=== PATIENT | male | born 1975 | race Two or more races ===

== ENCOUNTER 2020-12-05 07:42 | Inpatient (IN) ==
[2020-12-05] MEDS ORDERED: SODIUM CHLORIDE 0.9% 1000ML 1,000 ML IV SCH (08:15)
[2020-12-05 08:28] LABS: Hematocrit (blood only) 42.9 % (42-52); Hemoglobin 14.5 g/dL (14.0-18.0); Mean Corpuscular Hemoglobin 30.5 pg (25-34); Mean Corpuscular Hgb Conc 33.8 g/dL (32-36); Mean Corpuscular Volume 90.3 fL (80-100); Mean Platelet Volume 9.6 fL (7.4-10.4); Platelet Count 410 K/uL (130-400); RDW Coefficient of Variation 14.3 % (11.5-14.5); RDW Standard Deviation 47.6 fL (36.4-46.3); Red Blood Count 4.75 M/uL (4.7-6.1); White Blood Count 10.01 K/uL (4.8-10.8)
[2020-12-05 08:42] LABS: Alanine Aminotransferase 57 U/L (12-78); Albumin Level 2.5 gm/dl (3.4-5.0); BUN Creatinine Ratio 18.8 (10-20); Blood Urea Nitrogen 18 mg/dl (7-18); Calcium 8.8 mg/dl (8.5-10.1); Carbon Dioxide 24 mmol/L (21-32); Chloride 102 mmol/L (98-107); Creatinine Clr Calc Pharmacy 107.7 ml/min; Est GFR (African American) 108.8; Est GFR (Non-African American) 93.9; Glucose 111 mg/dl (70-99); Sodium 137 mmol/L (136-145)
--- NOTE | 2020-12-05 08:42 | Emergency Department Note ---
History of Present Illness General Chief Complaint: Shortness of Breath/Dyspnea Time Seen by Provider: 12/05/20 07:50 Source: patient Mode of arrival: EMS Limitations: no limitations History of Present Illness Provider Complaint: shortness of breath Maximum Pain Intensity: 2 HPI Narrative: This is a 45-year-old male who presents to the ED with a chief complaint of shortness of breath. The patient started having shortness of breath yesterday. He also states that he has a cough that is nonproductive. He has had a little diarrhea over the past 24 hours and also reports some chills and diaphoresis. He was found to have oxygen saturations in the 80s and sent here from the [facility]. The patient has no additional complaints. Related Data Home oxygen amount: none Home Medications Medication Instructions Recorded Confirmed Type No Known Home Medications 12/05/20 12/05/20 History Allergies Allergy/AdvReac Type Severity Reaction Status Date / Time No Known Allergies Allergy Unverified 12/05/20 08:19 Past Med/Surg History Social History Smoking Status: Former smoker Feels Safe at Home: Yes Review of Systems A total of 10 systems reviewed and were otherwise negative Physical Exam Vital Signs: Vital Signs - 24 hr 12/05/20 07:50 12/05/20 07:54 12/05/20 07:55 Temperature 37.4 C Temperature Source Oral Pulse Rate 116 H 115 H 115 H Pulse Rate from Sp O2 Sensor 116 H 116 H Respiratory Rate 24 21 22 Respiratory Effort / Characteristics Non-Labored Respiratory Depth Normal Blood Pressure 131/83 123/79 Blood Pressure Janelle n 98 93 Pulse Oximetry 91 91 84 L Oxygen Delivery Me thod Oxymask Oxymask Room Air Oxygen Flow Rate 6 6 0 Sepsis Recent Feve r Within 48 Hours No Sepsis New/Unexpla ined Change in Men nino Status No Sepsis Action Take n by Nursing Physician Notified Oxygen Flow Rate - Titration 6 Pulse Oximetry Pos t Tiitration 95 12/05/20 08:00 12/05/20 08:01 12/05/20 08:15 Temperature Temperature Source Pulse Rate 118 H 119 H 115 H Pulse Rate from Sp O2 Sensor 118 H 121 H 115 H Respiratory Rate 28 H 23 24 Respiratory Effort / Characteristics Respiratory Depth Blood Pressure 123/79 129/78 Blood Pressure Janelle n 93 98 Pulse Oximetry 92 92 95 Oxygen Delivery Me thod Oxymask Oxymask Oxymask Oxygen Flow Rate 6 6 6 Sepsis Recent Feve r Within 48 Hours Sepsis New/Unexpla ined Change in Men nino Status Sepsis Action Take n by Nursing Oxygen Flow Rate - Titration Pulse Oximetry Pos t Tiitration 12/05/20 08:16 12/05/20 08:20 12/05/20 08:30 Temperature Temperature Source Pulse Rate 113 H 115 H Pulse Rate from Sp O2 Sensor 113 H 115 H Respiratory Rate 22 28 H Respiratory Effort / Characteristics Respiratory Depth Blood Pressure Blood Pressure Janelle n Pulse Oximetry 95 95 91 Oxygen Delivery Me thod Oxymask Oxymask Oxymask Oxygen Flow Rate 6 6 6 Sepsis Recent Feve r Within 48 Hours Sepsis New/Unexpla ined Change in Men nino Status Sepsis Action Take n by Nursing Oxygen Flow Rate - Titration Pulse Oximetry Pos t Tiitration 12/05/20 08:42 12/05/20 08:45 12/05/20 08:46 Temperature Temperature Source Pulse Rate 114 H 115 H 115 H Pulse Rate from Sp O2 Sensor 116 H 115 H 114 H Respiratory Rate 22 21 24 Respiratory Effort / Characteristics Respiratory Depth Blood Pressure 124/75 121/80 Blood Pressure Janelle n 81 84 Pulse Oximetry 93 94 94 Oxygen Delivery Me thod Oxymask Oxymask Oxymask Oxygen Flow Rate 6 6 6 Sepsis Recent Feve r Within 48 Hours Sepsis New/Unexpla ined Change in Men nino Status Sepsis Action Take n by Nursing Oxygen Flow Rate - Titration Pulse Oximetry Pos t Tiitration 12/05/20 09:00 12/05/20 09:15 12/05/20 09:30 Temperature Temperature Source Pulse Rate 123 H 108 H 108 H Pulse Rate from Sp O2 Sensor 120 H 109 H 108 H Respiratory Rate 22 22 24 Respiratory Effort / Characteristics Respiratory Depth Blood Pressure Blood Pressure Janelle n Pulse Oximetry 94 95 96 Oxygen Delivery Me thod Oxymask Oxymask Oxymask Oxygen Flow Rate 6 6 6 Sepsis Recent Feve r Within 48 Hours Sepsis New/Unexpla ined Change in Men nino Status Sepsis Action Take n by Nursing Oxygen Flow Rate - Titration Pulse Oximetry Pos t Tiitration 12/05/20 09:45 12/05/20 09:46 12/05/20 10:20 Temperature Temperature Source Pulse Rate 107 H 108 H 108 H Pulse Rate from Sp O2 Sensor 108 H 107 H Respiratory Rate 22 24 18 Respiratory Effort / Characteristics Respiratory Depth Blood Pressure 138/89 Blood Pressure Janelle n 104 Pulse Oximetry 95 94 Oxygen Delivery Me thod Oxymask Oxymask Oxygen Flow Rate 6 6 Sepsis Recent Feve r Within 48 Hours Sepsis New/Unexpla ined Change in Men nino Status Sepsis Action Take n by Nursing Oxygen Flow Rate - Titration Pulse Oximetry Pos t Tiitration Physical Exam: CONSTITUTIONAL/VITAL SIGNS: Reviewed / noted above. GENERAL: Non-toxic in appearance. INTEGUMENTARY: Warm, dry, and Jeannette. HEAD: Normocephalic. EYES: without scleral icterus or trauma. ENT/OROPHARYNX: clear and moist. LYMPHADENOPATHY/NECK: Is supple without lymphadenopathy or meningismus. RESPIRATORY: Lungs clear and equal. Mild increased work of breathing. CARDIOVASCULAR: Regular rate and rhythm. GI/ABDOMEN: Soft and nontender. No organomegaly or pulsatile mass. No rebound or guarding. Normal bowel sounds. EXTREMITIES: Warm and well perfused. BACK: No CVA tenderness. NEUROLOGICAL: Intact without focal deficits. PSYCHIATRIC: normal affect. MUSCULOSKELETAL: Normally developed with good muscle tone. TRIAGE NURSING DOCUMENTATION REVIEWED. Course Administered Medications Levofloxacin/Dextrose (Levaquin/D5w) 750 mg in 150 mls @ 100 mls/hr IV NOW STA Stop: 12/05/20 11:41 Last Admin: 12/05/20 10:22 Dose: 100 mls/hr Documented by: [id number] Discontinued Medications Sodium Chloride (Nss 1000ml) 1,000 mls @ 999 mls/hr IV .Q1H1M KASIA Stop: 12/05/20 09:15 Last Admin: 12/05/20 08:52 Dose: 999 mls/hr Documented by: [id number] Ioversol (Optiray 320 125ml) 110 ml IV ONCE ONE Stop: 12/05/20 10:05 Last Admin: 12/05/20 10:06 Dose: 110 ml Documented by: [id number] Medical Decision Making Differential Diagnosis The differential was considered includes acute myocardial infarction, acute co ronary syndrome, myocarditis, pericarditis, pericardial effusions /tamponad, esophageal perforation, pulmonary embolism, pneumonia, pneumothorax, cardiomyopathy, congestive heart, anemia , COPD/asthma exacerbation. Medical Records Attestation: I reviewed the patient's medical records. Home Medications Current Medication List: was personally reviewed by me Laboratory Data Attestation: I reviewed the patient's lab results. Result diagrams: 12/05/20 07:50 12/05/20 08:52 Lab Results 12/05/20 12/05/20 12/05/20 Range/Units 07:50 07:50 07:50 WBC 10.01 (4.8-10.8) K/uL RBC 4.75 (4.7-6.1) M/uL Hgb 14.5 (14.0-18.0) g/dL Hct 42.9 (42-52) % MCV 90.3 (80-100) fL MCH 30.5 (25-34) pg MCHC 33.8 (32-36) g/dL RDW Std Deviation 47.6 H (36.4-46.3) fL RDW Coeff of Power 14.3 (11.5-14.5) % Plt Count 410 H (130-400) K/uL MPV 9.6 (7.4-10.4) fL Immature Gran % (Auto) 0.4 % Neut % (Auto) 78.2 % Lymph % (Auto) 11.9 % Catron % (Auto) 9.2 % Eos % (Auto) 0.1 % Baso % (Auto) 0.2 % Neut # (Auto) 7.83 H (1.4-6.5) K/uL Lymph # (Auto) 1.19 L (1.2-3.4) K/uL Catron # (Auto) 0.92 H (0.11-0.59) K/uL Eos # (Auto) 0.01 (0-0.5) K/uL Baso # (Auto) 0.02 (0-0.2) K/uL Immature Gran # (Auto) 0.04 H (0.00-0.02) K/uL PT 10.6 (9.0-12.0) Seconds INR 1.0 (0.9-1.1) APTT 25.1 (21.0-31.0) Seconds PTT Ratio 0.9 D-Dimer 940 H* (0-500) ug/L FEU VBG pH (7.36-7.41) VBG pCO2 (38-50) mmHg VBG pO2 mmHg VBG HCO3 mmol/L VBG O2 Saturation % VBG Base Excess mEq/L Barometric Pressure mm/Hg Sodium 137 (136-145) mmol/L Potassium (3.5-5.1) mmol/L Chloride 102 (98-107) mmol/L Carbon Dioxide 24 (21-32) mmol/L Anion Gap 11.0 (3-11) BUN 18 (7-18) mg/dl Creatinine 0.97 (0.6-1.4) mg/dl Est Cr Clr Drug Dosing 107.7 ml/min Est GFR ( Amer) 108.8 Est GFR (Non-Af Amer) 93.9 BUN/Creatinine Ratio 18.8 (10-20) Glucose 111 H (70-99) mg/dl Calcium 8.8 (8.5-10.1) mg/dl Magnesium (1.8-2.4) mg/dl Total Bilirubin 0.6 (0.2-1) mg/dl AST (15-37) U/L ALT 57 (12-78) U/L Alkaline Phosphatase 52 (45-117) U/L Troponin I < 0.015 (0-0.045) ng/ml NT-Pro-B Natriuret Pep 9 (0-450) pg/ml Total Protein 7.4 (6.4-8.2) gm/dl Albumin 2.5 L (3.4-5.0) gm/dl Globulin 4.9 H (2.5-4.0) gm/dl Albumin/Globulin Ratio 0.5 L (0.9-2) Specimen Hemolysis COVID-19 Eval Order SARS-CoV-2 (PCR) (Negative) Influenza Type A (PCR) (Neg) Influenza Type B (PCR) (Neg) RSV (RT-PCR) (Neg) 12/05/20 12/05/20 12/05/20 Range/Units 07:58 07:58 08:35 WBC (4.8-10.8) K/uL RBC (4.7-6.1) M/uL Hgb (14.0-18.0) g/dL Hct (42-52) % MCV (80-100) fL MCH (25-34) pg MCHC (32-36) g/dL RDW Std Deviation (36.4-46.3) fL RDW Coeff of Power (11.5-14.5) % Plt Count (130-400) K/uL MPV (7.4-10.4) fL Immature Gran % (Auto) % Neut % (Auto) % Lymph % (Auto) % Catron % (Auto) % Eos % (Auto) % Baso % (Auto) % Neut # (Auto) (1.4-6.5) K/uL Lymph # (Auto) (1.2-3.4) K/uL Catron # (Auto) (0.11-0.59) K/uL Eos # (Auto) (0-0.5) K/uL Baso # (Auto) (0-0.2) K/uL Immature Gran # (Auto) (0.00-0.02) K/uL PT (9.0-12.0) Seconds INR (0.9-1.1) APTT (21.0-31.0) Seconds PTT Ratio D-Dimer (0-500) ug/L FEU VBG pH 7.44 H (7.36-7.41) VBG pCO2 40 (38-50) mmHg VBG pO2 36 mmHg VBG HCO3 27 mmol/L VBG O2 Saturation 68.0 % VBG Base Excess 2.3 mEq/L Barometric Pressure 734.3 mm/Hg Sodium (136-145) mmol/L Potassium (3.5-5.1) mmol/L Chloride (98-107) mmol/L Carbon Dioxide (21-32) mmol/L Anion Gap (3-11) BUN (7-18) mg/dl Creatinine (0.6-1.4) mg/dl Est Cr Clr Drug Dosing ml/min Est GFR ( Amer) Est GFR (Non-Af Amer) BUN/Creatinine Ratio (10-20) Glucose (70-99) mg/dl Calcium (8.5-10.1) mg/dl Magnesium (1.8-2.4) mg/dl Total Bilirubin (0.2-1) mg/dl AST (15-37) U/L ALT (12-78) U/L Alkaline Phosphatase (45-117) U/L Troponin I (0-0.045) ng/ml NT-Pro-B Natriuret Pep (0-450) pg/ml Total Protein (6.4-8.2) gm/dl Albumin (3.4-5.0) gm/dl Globulin (2.5-4.0) gm/dl Albumin/Globulin Ratio (0.9-2) Specimen Hemolysis COVID-19 Eval Order CovFluRsv at [facility] SARS-CoV-2 (PCR) NEGATIVE (Negative) Influenza Type A (PCR) Negative (Neg) Influenza Type B (PCR) Negative (Neg) RSV (RT-PCR) Negative (Neg) 12/05/20 Range/Units 08:52 WBC (4.8-10.8) K/uL RBC (4.7-6.1) M/uL Hgb (14.0-18.0) g/dL Hct (42-52) % MCV (80-100) fL MCH (25-34) pg MCHC (32-36) g/dL RDW Std Deviation (36.4-46.3) fL RDW Coeff of Power (11.5-14.5) % Plt Count (130-400) K/uL MPV (7.4-10.4) fL Immature Gran % (Auto) % Neut % (Auto) % Lymph % (Auto) % Catron % (Auto) % Eos % (Auto) % Baso % (Auto) % Neut # (Auto) (1.4-6.5) K/uL Lymph # (Auto) (1.2-3.4) K/uL Catron # (Auto) (0.11-0.59) K/uL Eos # (Auto) (0-0.5) K/uL Baso # (Auto) (0-0.2) K/uL Immature Gran # (Auto) (0.00-0.02) K/uL PT (9.0-12.0) Seconds INR (0.9-1.1) APTT (21.0-31.0) Seconds PTT Ratio D-Dimer (0-500) ug/L FEU VBG pH (7.36-7.41) VBG pCO2 (38-50) mmHg VBG pO2 mmHg VBG HCO3 mmol/L VBG O2 Saturation % VBG Base Excess mEq/L Barometric Pressure mm/Hg Sodium (136-145) mmol/L Potassium 4.0 (3.5-5.1) mmol/L Chloride (98-107) mmol/L Carbon Dioxide (21-32) mmol/L Anion Gap (3-11) BUN (7-18) mg/dl Creatinine (0.6-1.4) mg/dl Est Cr Clr Drug Dosing ml/min Est GFR ( Amer) Est GFR (Non-Af Amer) BUN/Creatinine Ratio (10-20) Glucose (70-99) mg/dl Calcium (8.5-10.1) mg/dl Magnesium 2.9 H (1.8-2.4) mg/dl Total Bilirubin (0.2-1) mg/dl AST 66 H (15-37) U/L ALT (12-78) U/L Alkaline Phosphatase (45-117) U/L Troponin I (0-0.045) ng/ml NT-Pro-B Natriuret Pep (0-450) pg/ml Total Protein (6.4-8.2) gm/dl Albumin (3.4-5.0) gm/dl Globulin (2.5-4.0) gm/dl Albumin/Globulin Ratio (0.9-2) Specimen Hemolysis COVID-19 Eval Order SARS-CoV-2 (PCR) (Negative) Influenza Type A (PCR) (Neg) Influenza Type B (PCR) (Neg) RSV (RT-PCR) (Neg) Imaging Data Radiologist's Impression: XR chest 1V portable CLINICAL HISTORY: Respiratory difficulty. COMPARISON STUDY: No previous studies for comparison. FINDINGS: The heart is borderline enlarged. There are multifocal airspace opacities consistent with a multifocal pneumonia. There are no large pleural effusions. There is no pneumothorax.[ IMPRESSION: Multifocal airspace opacities consistent with a multifocal pneumonia. CT scan of the chest: 1. No evidence for pulmonary embolus with limitations as described above. 2. Moderate multifocal pneumonia. This is likely due to viral process. 3. Mild mediastinal and bilateral hilar lymphadenopathy. This is likely reactive . 4. Small pericardial effusion. 5. Hepatic steatosis. ECG Data Attestation: I personally reviewed and interpreted this ECG as follows: (Per my interpretation there is a sinus tach at a rate of 115. No ST elevation or ectopy.) MDM Narrative Patient presents from the long term with a chief complaint of a cough, shortness of breath and hypoxia. Saturations were 84% on room air here. A chest x-ray and CT suggested multifocal pneumonia. CBC was normal. D-dimer was elevated. Complete metabolic panel was normal. Troponin was negative. Covid and flu test are negative. VBG was unremarkable. EKG showed a sinus tach at a rate of 115. I did start the patient on IV Levaquin. He was also given IV fluids. A CT scan with IV contrast is being performed. The patient was seen by the hospitalist for further patient evaluation and care. Impression & Plan Bilateral pneumonia, Hypoxia Critical Care Time Critical Care Time: Yes Total Critical Care Time: 35 I have personally spent 35 minutes of critical care time in the direct management of this patient. This includes bedside care, interpretation of diagnostic studies, and testing, discussion with consultants, patient, and family members, and other required patient management activities. This 35 minutes is in excess of all separately billable procedures. Discharge Plan Visit Data Chief Complaint: Shortness of Breath/Dyspnea ED Provider: Margarito Pritchett Discharge Problem: Bilateral pneumonia, Hypoxia Patient Disposition: Being Evaluated by Hospitalist Forms Stand Alone Forms: My [facility] Prescriptions Prescriptions: No Action No Known Home Medications RF: 0 Referrals Referrals: Moni PARKS [Primary Care Provider] - Discharge Problem: Bilateral pneumonia Qualifiers: Pneumonia type: due to unspecified organism Lung location: unspecified part of lung Qualified Code(s): J18.9 - Pneumonia, unspecified organism
[2020-12-05 08:49] LABS: Base Excess VBG 2.3 mEq/L; pH VBG 7.44 (7.36-7.41)
[2020-12-05 08:49] LABS: Partial Thromboplastin Ratio 0.9; Partial Thromboplastin Time 25.1 Seconds (21.0-31.0); Prothrombin Time 10.6 Seconds (9.0-12.0)
[2020-12-05 08:54] LABS: Albumin Globulin Ratio 0.5 (0.9-2); Alkaline Phosphatase 52 U/L (45-117); Basophils # (auto) 0.02 K/uL (0-0.2); Basophils % (auto) 0.2 %; Bilirubin,Total 0.6 mg/dl (0.2-1); Eosinophils # (auto) 0.01 K/uL (0-0.5); Eosinophils % (auto) 0.1 %; Globulin 4.9 gm/dl (2.5-4.0); Immature Granulocytes # (auto) 0.04 K/uL (0.00-0.02); Immature Granulocytes % (auto) 0.4 %; Lymphocytes # (auto) 1.19 K/uL (1.2-3.4); Lymphocytes % (auto) 11.9 %; Monocytes # (auto) 0.92 K/uL (0.11-0.59); Monocytes % (auto) 9.2 %; NT Pro B Type Natriuretic Pept 9 pg/ml (0-450); Neutrophils # (auto) 7.83 K/uL (1.4-6.5); Neutrophils % (auto) 78.2 %; Total Protein 7.4 gm/dl (6.4-8.2); Troponin I < 0.015 ng/ml (0-0.045)
[2020-12-05 08:59] LABS: D Dimer 940 ug/L FEU (0-500)
--- NOTE | 2020-12-05 09:08 | XRay Report ---
XR chest 1V portable CLINICAL HISTORY: Respiratory difficulty. COMPARISON STUDY: No previous studies for comparison. FINDINGS: The heart is borderline enlarged. There are multifocal airspace opacities consistent with a multifocal pneumonia. There are no large pleural effusions. There is no pneumothorax.[ IMPRESSION: Multifocal airspace opacities consistent with a multifocal pneumonia. ACT 112: Negative or not required by law. Electronically signed by: Herson Ivy M.D. 12/05/2020 9:07 AM
[2020-12-05 09:31] LABS: Magnesium 2.9 mg/dl (1.8-2.4)
[2020-12-05 09:34] LABS: Influenza A virus by PCR Negative (Neg); Influenza B virus by PCR Negative (Neg); RSV by PCR Negative (Neg); SARS CoV2 RNA(COVID-19) InHosp NEGATIVE (Negative)
[2020-12-05] MEDS ORDERED: OPTIRAY 320 125ml IV ONE (10:04)
[2020-12-05] MEDS ORDERED: levoFLOXacin/D5W 750 MG/150 ML BAG IV STA (10:12)
--- NOTE | 2020-12-05 10:29 | CT Scan Report ---
CHEST CTA for PULMONARY ARTERIES CT DOSE: 539.57 mGy.cm HISTORY: Shortness of breath. TECHNIQUE: Multiaxial CT images of the chest were performed following the intravenous administration of contrast to evaluate the pulmonary arteries. Maximal intensity projection images were also obtaine d. A dose lowering technique was utilized adhering to the principles of ALARA. COMPARISON STUDY: None. FINDINGS: Normal caliber thoracic aorta with no evidence for dissection. Small pericardial effusion. No pleural effusions. Motion artifact results in nondiagnostic evaluation of some of the bilateral lo wer lobe segmental and subsegmental pulmonary arteries. There is nondiagnostic evaluation of the segm ental and subsegmental right middle lobe pulmonary arteries due to the motion artifact. Otherwise, no definite filling defects within the remaining pulmonary arteries to suggest pulmonary embolus. A few mildly enlarged mediastinal and bilateral hilar lymph nodes. This is likely reactive. Dominant super ior mediastinal lymph node on image 211 measures 1.7 x 1.1 cm. Normal esophagus. The heart is normal in size. No evidence for right-sided heart strain. Limited views of the upper abdomen demonstrate a n ormal spleen and adrenal glands. Hepatic steatosis. No fractures within the visualized osseous struct ures. No pneumothorax. The central airways are patent. Multifocal patchy consolidative and groundglas s airspace opacities seen throughout the lungs. Findings are consistent with a moderate multifocal pn eumonia likely due to a viral process. IMPRESSION: 1. No evidence for pulmonary embolus with limitations as described above. 2. Moderate multifocal pneumonia. This is likely due to viral process. 3. Mild mediastinal and bilateral hilar lymphadenopathy. This is likely reactive. 4. Small pericardial effusion. 5. Hepatic steatosis. ACT 112: Negative or not required by law. Electronically signed by: Joe Nevarez M.D. 12/05/2020 10:27 AM
--- NOTE | 2020-12-05 11:25 | History & Physical Report ---
Date of Service December 05, 2020 Assessment & Plan (1) Bilateral pneumonia: Mr. Martins is a 45 year male inmate at [facility] with a history of Tobacco Use and Migraine Headaches who presented acutely to [facility] ER today with complaints of SOB, Non-Productive Cough, and Hypoxia which are most likely secondary to COVID-19 despite a negative initial SARS CoV 2 PCR. He has symptoms consistent with SARS CoV 2, there are several cases of COVID at [facility], imaging shows multifocal pneumonia/infiltrates, D-dimer is elevated, he has neutrophilia and lymphopenia, and he had O2 saturations in the 80's. Recommend the following: -- Admit to Telemetry bed on isolation and COVID precautions. -- Continue supplemental O2 to maintain Os saturation > 94%. -- Check procalcitonin now. -- Blood cultures have already been drawn. -- Begin IV Remdesivir 200 mg daily x 1 day, then 100 mg therafter. -- IV Decadron 6 mg daily. -- Azithromycin 500 mg IV daily. -- Convalescent plasma. -- Albuterol nebulizers. -- Monitor daily labs. (2) Hypoxia: -- As outlined above. (3) Exposure to COVID-19 virus: -- Several cases of SARS CoV-2 at [facility] facility currently. -- Repeat COVID testing as needed for discharge. (4) Chronic lower back pain: tylenol prn (5) Migraine: tylenol or ibuprofen prn (6) DVT prophylaxis: Lovenox 40 mg SQ twice daily Disposition-admit to PCU History of Present Illness Chief Complaint: -- Multifocal Pneumonia. -- Hypoxia. -- Exposure to SARS CoV 2. Primary Care Provider: [facility] Mr. Martins is a 45 year male inmate at [facility] with a history of Tobacco Use and Migraine Headaches who presented acutely to [facility] ER today with complaints of SOB, Non-Productive Cough, and Hypoxia. The patient started having shortness of breath last evening after taking a shower. He has also experienced diarrhea over the past 24 hours but denies any nausea, vomiting, or focal abdominal pain. Patient also reports chills, but he didn't check his temperature. He has a cough which is non-productive although it feels like "something wants to come up". Cough is exacerbated by taking a deep breath, and it hurts his head and chest when he coughs. His oxygen saturations at [facility] were recorded in the 80s -- so he was referred to the ER. Evaluation so far shows negative SARS CoV-2, negative for influenza. CXR shows multifocal infiltrates. CTA of Chest is negative for PE, moderate multifocal pneumonia most consistent with a viral process, and mild mediastinal and bilateral hilar lymphadenopathy (likely reactive). Presentation is consistent with COVID. Allergies Allergy/AdvReac Type Severity Reaction Status Date / Time No Known Allergies Allergy Unverified 12/05/20 08:19 Home Medications Medication Instructions Recorded Confirmed Type No Known Home Medications 12/05/20 12/05/20 History Past Med/Surg History Medical History (Updated 12/05/20 @ 12:51 by Aylin Yip MD) Chronic lower back pain Former smoker Influenza He was hospitalized for this as a child. Migraine Surgical History (Updated 12/05/20 @ 12:44 by Aylin Yip MD) History of appendectomy Family History Father AIDS (acquired immune deficiency syndrome) Social History (Updated 12/05/20 @ 12:48 by Aylin Yip MD) Smoking Status: Former smoker Tobacco Type: Cigarettes Age Started Using Tobacco: 13; Age Quit Using Tobacco: 43; packs per day: 1; Years Smoked: 30; Second Hand Exposure: No; Do You Dip or Chew Tobacco: No; Tobacco Cessation Education Requested by Patient: No Hx Alcohol Use: No Hx Substance Use: No Preferred Language: Slovak Communication Ability: Effective Spool Winder Required: No Beliefs That Will Affect Care: None Current Living Situation: Other Current Living Situation Comment: [facility] [place] Other Information That Helps Us Care for You: No Feels Safe at Home: Yes Safety Concerns: Feels Safe At This Time Assistive Devices: Glasses Review of Systems Review of Systems: All systems reviewed & are unremarkable except as noted in HPI & below Physical Exam Physical Exam: GENERAL: Patient appears ill, he tachypneic and taking shallow breaths. HEENT: Head is atraumatic, normocephalic. EOM's intact. Facies symmetric. No perioral cyanosis. NECK: No JVD. JVP is at the level of the clavicle sitting upright. Carotid upstrokes are + 2 bilaterally. No bruits are noted. No adenopathy. CHEST/LUNGS: Scattered crackles throughout, no pleural rubs noted. CVS: S1 and S2 are regular, tachycardiac at 106 bpm. No obvious murmurs, gallops, or rubs. PMI is nondisplaced. No lifts, heaves, or thrills. No abdominal aortic or renal bruits. ABDOMINAL EXAM: Bowel sounds are present. No masses, organomegaly, or tenderness. EXTREMITIES: No clubbing or cyanosis. No edema. Intact posterior tibial and radial pulses bilaterally. NEUROLOGIC EXAM: Patient is awake, alert, and oriented. Pleasant and cooperative. Answers questions appropriately. Speech is clear. Normal movement in all 4 extremities. Results & Data Results & Data ([facility]) Vital Signs (Past 12 Hours) Vital Signs Temp Pulse Resp BP Pulse Ox 12/05/20 11:01 103 H 18 95 12/05/20 11:00 105 H 22 110/62 95 12/05/20 10:46 104 H 22 96 12/05/20 10:45 103 H 20 131/66 96 12/05/20 10:31 106 H 24 95 12/05/20 10:30 104 H 22 121/72 95 12/05/20 10:27 110 H 17 127/78 90 12/05/20 10:20 108 H 18 12/05/20 09:46 108 H 24 94 12/05/20 09:45 107 H 22 138/89 95 12/05/20 09:30 108 H 24 96 12/05/20 09:15 108 H 22 95 12/05/20 09:00 123 H 22 94 12/05/20 08:46 115 H 24 94 12/05/20 08:45 115 H 21 121/80 94 12/05/20 08:42 114 H 22 124/75 93 12/05/20 08:30 115 H 28 H 91 12/05/20 08:20 95 12/05/20 08:16 113 H 22 95 12/05/20 08:15 115 H 24 129/78 95 12/05/20 08:01 119 H 23 92 12/05/20 08:00 118 H 28 H 123/79 92 12/05/20 07:55 37.4 C 115 H 22 123/79 84 L 12/05/20 07:54 115 H 21 91 12/05/20 07:50 116 H 24 131/83 91 Laboratory Results Laboratory Results - last 24 hr 12/05/20 12/05/20 12/05/20 07:50 07:50 07:50 WBC 10.01 RBC 4.75 Hgb 14.5 Hct 42.9 MCV 90.3 MCH 30.5 MCHC 33.8 RDW Std Deviation 47.6 H RDW Coeff of Power 14.3 Plt Count 410 H MPV 9.6 Immature Gran % (Auto) 0.4 Neut % (Auto) 78.2 Lymph % (Auto) 11.9 [place] % (Auto) 9.2 Eos % (Auto) 0.1 Baso % (Auto) 0.2 Neut # (Auto) 7.83 H Lymph # (Auto) 1.19 L [place] # (Auto) 0.92 H Eos # (Auto) 0.01 Baso # (Auto) 0.02 Immature Gran # (Auto) 0.04 H PT 10.6 INR 1.0 APTT 25.1 PTT Ratio 0.9 D-Dimer 940 H* VBG pH VBG pCO2 VBG pO2 VBG HCO3 VBG O2 Saturation VBG Base Excess Barometric Pressure Sodium 137 Potassium Chloride 102 Carbon Dioxide 24 Anion Gap 11.0 BUN 18 Creatinine 0.97 Est Cr Clr Drug Dosing 107.7 Est GFR ( Amer) 108.8 Est GFR (Non-Af Amer) 93.9 BUN/Creatinine Ratio 18.8 Glucose 111 H Calcium 8.8 Magnesium Total Bilirubin 0.6 AST ALT 57 Alkaline Phosphatase 52 Troponin I < 0.015 NT-Pro-B Natriuret Pep 9 Total Protein 7.4 Albumin 2.5 L Globulin 4.9 H Albumin/Globulin Ratio 0.5 L Procalcitonin Specimen Hemolysis COVID-19 Eval Order SARS-CoV-2 (PCR) Influenza Type A (PCR) Influenza Type B (PCR) RSV (RT-PCR) 12/05/20 12/05/20 12/05/20 07:58 07:58 08:35 WBC RBC Hgb Hct MCV MCH MCHC RDW Std Deviation RDW Coeff of Power Plt Count MPV Immature Gran % (Auto) Neut % (Auto) Lymph % (Auto) [place] % (Auto) Eos % (Auto) Baso % (Auto) Neut # (Auto) Lymph # (Auto) [place] # (Auto) Eos # (Auto) Baso # (Auto) Immature Gran # (Auto) PT INR APTT PTT Ratio D-Dimer VBG pH 7.44 H VBG pCO2 40 VBG pO2 36 VBG HCO3 27 VBG O2 Saturation 68.0 VBG Base Excess 2.3 Barometric Pressure 734.3 Sodium Potassium Chloride Carbon Dioxide Anion Gap BUN Creatinine Est Cr Clr Drug Dosing Est GFR ( Amer) Est GFR (Non-Af Amer) BUN/Creatinine Ratio Glucose Calcium Magnesium Total Bilirubin AST ALT Alkaline Phosphatase Troponin I NT-Pro-B Natriuret Pep Total Protein Albumin Globulin Albumin/Globulin Ratio Procalcitonin Specimen Hemolysis COVID-19 Eval Order CovFluRsv at [facility] SARS-CoV-2 (PCR) NEGATIVE Influenza Type A (PCR) Negative Influenza Type B (PCR) Negative RSV (RT-PCR) Negative 12/05/20 12/05/20 08:52 08:52 WBC RBC Hgb Hct MCV MCH MCHC RDW Std Deviation RDW Coeff of Power Plt Count MPV Immature Gran % (Auto) Neut % (Auto) Lymph % (Auto) [place] % (Auto) Eos % (Auto) Baso % (Auto) Neut # (Auto) Lymph # (Auto) [place] # (Auto) Eos # (Auto) Baso # (Auto) Immature Gran # (Auto) PT INR APTT PTT Ratio D-Dimer VBG pH VBG pCO2 VBG pO2 VBG HCO3 VBG O2 Saturation VBG Base Excess Barometric Pressure Sodium Potassium 4.0 Chloride Carbon Dioxide Anion Gap BUN Creatinine Est Cr Clr Drug Dosing Est GFR ( Amer) Est GFR (Non-Af Amer) BUN/Creatinine Ratio Glucose Calcium Magnesium 2.9 H Total Bilirubin AST 66 H ALT Alkaline Phosphatase Troponin I NT-Pro-B Natriuret Pep Total Protein Albumin Globulin Albumin/Globulin Ratio Procalcitonin Pending Specimen Hemolysis COVID-19 Eval Order SARS-CoV-2 (PCR) Influenza Type A (PCR) Influenza Type B (PCR) RSV (RT-PCR) Diagnostic Findings CTA CHEST: 1. No evidence for pulmonary embolus with limitations as described above. 2. Moderate multifocal pneumonia. This is likely due to viral process. 3. Mild mediastinal and bilateral hilar lymphadenopathy. This is likely reactive. 4. Small pericardial effusion. 5. Hepatic steatosis. CXR: -- Multifocal airspace opacities consistent with a multifocal pneumonia. EKG: -- Sinus tachycardia at 115 bpm. -- Poor R wave progression across precordial leads. -- Abnormal EKG No previous EKGs available. Medications Administered Active Medications Generic Name Dose Route Start Last Admin Trade Name Morro PRN Reason Stop Dose Admin Albuterol 2 puffs 12/05/20 12:00 Albuterol Hfa 8 Gm Inhaler INH 01/04/21 11:59 Q6 KASIA Guaifenesin/Dextromethorphan 5 ml 12/05/20 11:45 Guaifenesin/Dextrom Syrup 100mg/10mg 5ml Udc PO 01/04/21 11:44 Q6H KASIA Code Status & VTE Plan Code Status Full code VTE Prophylaxis Plan VTE Prophylaxis will be ordered: Yes Supervising Physician Co-Signing Physician Notes PA Supervision Note: I personally saw and examined the patient. I verified all parra points and agree with MORGAN Berrios with the following exceptions and/or additions: This patient is a 45-year-old male with a history of migraine headaches, former [id number] smoker, and chronic lower back pain who is a prisoner at a facility with an outbreak of Covid-19. He presents with 2 days of worsening shortness of breath, cough, headache, subjective fevers, and hypoxia in the 80s on room air. He was placed on oxygen and transferred to the ER. He was found to have bilateral infiltrates on chest CT, mildly elevated D-dimer, lymphopenia, and sinus tachycardia. He was on 6 L nasal cannula to keep his pulse ox in the low 90s upon admission. History and ROS reviewed as above Vitals reviewed Gen: AAOx3, NAD, appears ill HEENT: Anicteric sclerae, EOMI CV: Mild tachycardia, regular rhythm, no mgr nl S1S2 Pulm: Bilateral rhonchi and occasional expiratory wheeze Abd: +BS soft NT ND no masses or hernias Ext: No edema, 2+ DP pulses Skin: No rashes, warm/dry Neuro: Full strength throughout Laboratory values reviewed ECG reviewed CT angiogram and chest x-ray images personally reviewed by me 45-year-old male here with acute respiratory failure with hypoxia, bilateral pneumonia, highly suspect Covid-19 despite negative Covid-19 testing. Also in the differential could be Legionella and bacterial pneumonia given that procalcitonin is now elevated after admission. -Admit and treat presumably for Covid-19 as above with dexamethasone, remdesivir, consented for convalescent plasma We will also cover with levofloxacin for community-acquired pneumonia as well as Legionella pneumonia Check Legionella urine antigen Consider pulmonary consultation-we will discuss with pulmonology May need to switch to high flow nasal cannula if oxygen requirements increase Lovenox 40 mg twice daily for DVT prophylaxis PG Care Time/CCT Total # of Minutes Spent Total Time Spent with Patient: Total time spent is greater than 50% in coordination of care (as documented) at patient's floor/unit and/or counseling patient:25 Coding Level of Care Code 73905 Initial Inpt Care Lvl 3 Diagnoses Bilateral pneumonia J18.9 Lung location: unspecified part of lung Pneumonia type: due to unspecified organism Hypoxia R09.02 Exposure to COVID-19 virus Z20.822 Chronic lower back pain M54.5; G89.29 Migraine G43.909 DVT prophylaxis Z29.9 Time Spent (min) 50 (1) Bilateral pneumonia Lung location: unspecified part of lung Pneumonia type: due to unspecified organism Qualified Code(s): J18.9 - Pneumonia, unspecified organism
[2020-12-05] MEDS ORDERED: guaiFENesin/DEXTROM SYRUP 100MG/10MG 5ML UDC PO SCH (11:45)
[2020-12-05] MEDS ORDERED: ALBUTEROL HFA 8 GM INHALER INH SCH (12:00)
[2020-12-05] MEDS ORDERED: ONDANSETRON INJ 2 MG/ML 2 ML VIAL IV PRN (12:23)
[2020-12-05] MEDS ORDERED: SODIUM CHLORIDE 0.9% 500 ML IV SCH (12:23)
[2020-12-05] MEDS ORDERED: ACETAMINOPHEN 325 MG TAB PO PRN (12:23)
[2020-12-05] MEDS ORDERED: ALUMINUM/MAGNESIUM/SIMETH (MAALOX MAX) 30 ML UDC PO PRN (12:23)
[2020-12-05] MEDS ORDERED: MAGNESIUM HYDROXIDE SUSP 30 ML UDC PO PRN (12:23)
[2020-12-05] MEDS ORDERED: ALBUTEROL HFA 8 GM INHALER INH PRN (12:45)
[2020-12-05] MEDS ORDERED: REMDESIVIR 200 MG in SODIUM CHLORIDE 0.9% 210 ML IV ONE (12:45)
[2020-12-05] MEDS ORDERED: guaiFENesin/DEXTROM SYRUP 100MG/10MG 5ML UDC PO PRN (12:46)
[2020-12-05] MEDS ORDERED: AZITHROMYCIN 500 MG in DEXTROSE 5% 250 ML IV SCH (13:00)
[2020-12-05] MEDS: ALBUTEROL 0.083% NEBU SOLN 3 ML VIAL NEB SCH ×2 (13:08→19:27)
[2020-12-05] MEDS: ENOXAPARIN INJ 40 MG/0.4 ML SYR SQ SCH ×2 (13:25→22:43)
[2020-12-05] MEDS: dexAMETHasone 6 MG in SYRINGE 0 ML IV SCH (13:25)
[2020-12-05] MEDS: SODIUM CHLORIDE 0.9% 10ML FLUSH IV SCH (14:52)
--- NOTE | 2020-12-05 15:20 | Electrocardiogram Report ---
Test Reason : Blood Pressure : / mmHG Vent. Rate : 115 BPM Atrial Rate : 115 BPM P-R Int : 138 ms QRS Dur : 084 ms QT Int : 338 ms P-R-T Axes : 042 044 012 degrees QTc Int : 467 ms Sinus tachycardia Borderline ECG No previous ECGs available Confirmed by Kwasi Tariq ([id number]) on 12/05/2020 3:19:56 PM Referred By: REFERRED SELF Confirmed By:Kwasi Tariq
[2020-12-05] MEDS: guaiFENesin 600 MG TABCR PO SCH (21:24)
[2020-12-06] MEDS: ALBUTEROL 0.083% NEBU SOLN 3 ML VIAL NEB SCH ×2 (01:07→06:38)
[2020-12-06] MEDS: guaiFENesin 600 MG TABCR PO SCH ×2 (08:12→22:00)
[2020-12-06] MEDS: dexAMETHasone 6 MG in SYRINGE 0 ML IV SCH (08:12)
[2020-12-06] MEDS: levoFLOXacin/D5W 750 MG/150 ML BAG IV SCH (09:47)
[2020-12-06] MEDS ORDERED: ALBUTEROL 0.083% NEBU SOLN 3 ML VIAL NEB PRN (09:51)
[2020-12-06] MEDS: ENOXAPARIN INJ 40 MG/0.4 ML SYR SQ SCH ×2 (11:57→22:02)
[2020-12-06] MEDS: REMDESIVIR 100 MG in SODIUM CHLORIDE 0.9% 230 ML IV SCH (11:57)
[2020-12-06] MEDS: SODIUM CHLORIDE 0.9% 10ML FLUSH IV SCH (14:04)
--- NOTE | 2020-12-06 16:38 | Hospitalist Progress Note ---
Date of Service December 06, 2020 Assessment & Plan (1) Acute respiratory failure with hypoxia: 2nd to extensive b/l pneumonia. Clinical picture is highly suggestive of COVID-19 pneumonia - labs, x-ray findings, clinical course, loss of smell, altered taste, etc all support the diagnosis. He is from [facility] which is experiencing major outbreak of COVID-19. Could be atypical pneumonia (legionella, etc) but less likely. Agree with empiric Rx for COVID-19 infection -- * IV dexamethasone * IV remdesivir * s/p plasma treatment overnight * airborne precautions * self-proning and aggressive pulmonary toilet * bronchodilators * repeat COVID testing in 1-2 days * in the event this is bacterial pneumonia -- levaquin IV 750mg daily Given ethnicity and already high O2 requirement early in his clinical course he is at high risk of worsening status. (2) Bilateral pneumonia: see above (3) Obesity (BMI 30-39.9): BMI 34 (4) Suspected 2019 novel coronavirus infection: suspect that his initial COVID testing was false negative repeat testing tomorrow or Friday keep in airborne isolation (5) Loss of smell: this is pathognomonic for COVID-19 infection despite the negative testing (6) Elevated AST (SGOT): likely 2nd to suspected COVID-19 infection trend in light of remdesivir usage (7) DVT prophylaxis: in light of suspected COVID-19 infection utilize lovenox 40mg BID as he is at high risk of VTE guards were NOT appropriately dressed in full PPE counseled guards that he likely has COVID despite the negative testing advised full PPE -gowns, gloves - not just N95 respirator guards did not seem receptive -- I reported this to the nursing supervisor cereal of the floor this poses hazard to other staff and patients if they do not comply with full PPE Admission and Anticipated Discharge Date Admission Date: December 05, 2020 Subjective tele with NSR overnight. patient reports he has now lost his sense of smell and partially of his taste. appetite poor today. continues with severe dry cough. very dyspneic with any movement. denies h/o asthma. feels poorly overall. mild central chest tightness. no fevers/chills since admission. no vomiting. no abdominal pain. Review of Systems Constitutional: + fatigue, + weakness and + anorexia Respiratory: + cough and + dyspnea; no hemoptysis and no wheezing Cardiovascular: as per Subjective / HPI; no edema Gastrointestinal: no abdominal pain Musculoskeletal: no body aches Integumentary: no rash Physical Exam Constitutional: well developed, well nourished, + acute distress (Coughing, gets dyspneic during coughing fits) and + obese; no altered mental status ENMT: external ear and nose normal, oropharynx normal Respiratory: + cough and + tachypneic Auscultation: + diminished lung sounds (Bases), + rales and + pleural rub present; no wheezes Cardiovascular: Rate/Rhythm: regular rate and regular rhythm Heart Sounds: normal S1 and normal S2; no murmur Vessels: posterior tibial pulses present and dorsalis pedis pulses present; no JVD Extremities: normal capillary refill; no edema Gastrointestinal (Abdomen): normal bowel sounds, soft, nontender, no hepatosplenomegaly Skin: no rashes, warm and dry Psychiatric: A+Ox3, euthymic affect Results & Data Results & Data ([facility]) Vital Signs (Past 12 Hours) Vital Signs Temp Pulse Pulse Resp BP Pulse Ox 12/06/20 11:32 36.8 C 88 22 167/90 H 94 12/06/20 08:00 86 12/06/20 07:55 36.7 C 92 H 18 123/74 91 12/06/20 06:41 85 16 91 Laboratory Results Laboratory Results - last 24 hr 12/05/20 12/05/20 12:44 Unknown Urine Legionella Ag Pending Blood Type A Negative Antibody Screen NEGATIVE PG Care Time/CCT Total # of Minutes Spent Total Time Spent with Patient: Total time spent is greater than 50% in coordination of care (as documented) at patient's floor/unit and/or counseling patient: Coding Level of Care Code 59692 Subseq Hosp Care Lvl 3 Diagnoses Acute respiratory failure with hypoxia J96.01 Bilateral pneumonia J18.9 Lung location: unspecified part of lung Pneumonia type: due to unspecified organism Obesity (BMI 30-39.9) E66.9 Suspected 2019 novel coronavirus infection Z20.822 Loss of smell R43.0 Elevated AST (SGOT) R74.01 DVT prophylaxis Z29.9 (1) Bilateral pneumonia Lung location: unspecified part of lung Pneumonia type: due to unspecified organism Qualified Code(s): J18.9 - Pneumonia, unspecified organism
[2020-12-07] MEDS ORDERED: SODIUM CHLORIDE 0.65% NA SOLN 45 ML (OCEAN) ONE (05:03)
[2020-12-07 07:50] LABS: D Dimer 830 ug/L FEU (0-500)
[2020-12-07 08:01] LABS: Calcium 8.6 mg/dl (8.5-10.1); Creatinine Clr Calc Pharmacy 151.3 ml/min; Est GFR (African American) 132.9; Est GFR (Non-African American) 114.7; Potassium 3.6 mmol/L (3.5-5.1)
[2020-12-07] MEDS: dexAMETHasone 6 MG in SYRINGE 0 ML IV SCH (08:14)
[2020-12-07] MEDS: guaiFENesin 600 MG TABCR PO SCH ×2 (08:14→19:49)
[2020-12-07] MEDS: ADVANCED PROBIOTIC 1250 MG CAPSULE PO SCH (08:15)
[2020-12-07] MEDS: levoFLOXacin/D5W 750 MG/150 ML BAG IV SCH (10:30)
[2020-12-07] MEDS: ENOXAPARIN INJ 40 MG/0.4 ML SYR SQ SCH (12:11)
[2020-12-07] MEDS: REMDESIVIR 100 MG in SODIUM CHLORIDE 0.9% 230 ML IV SCH (12:11)
[2020-12-07] MEDS: SODIUM CHLORIDE 0.9% 10ML FLUSH IV SCH (14:28)
--- NOTE | 2020-12-07 20:28 | Hospitalist Progress Note ---
Date of Service December 07, 2020 Assessment & Plan (1) Acute respiratory failure with hypoxia: 2nd to extensive b/l pneumonia. Clinical picture is highly suggestive of COVID-19 pneumonia - labs, x-ray findings, clinical course, loss of smell, altered taste, etc all support the diagnosis. This is despite the negative COVID testing at presentation. He is from [facility] which is experiencing major outbreak of COVID-19. Could be atypical pneumonia (legionella, etc) but less likely. Cont empiric Rx for COVID-19 infection -- * day #2 IV dexamethasone * day #2 IV remdesivir * s/p plasma treatment * airborne precautions * self-proning and aggressive pulmonary toilet * bronchodilators * repeat COVID testing in 2 days * in the event this is bacterial pneumonia -- cont levaquin IV 750mg daily * await legionella urine Ag Given ethnicity and already high O2 requirement early in his clinical course he is at high risk of worsening status. (2) Bilateral pneumonia: see above (3) Obesity (BMI 30-39.9): BMI 34 (4) Suspected 2019 novel coronavirus infection: suspect that his initial COVID testing was false negative repeat testing 2 days loss of smell and altered taste HIGHLY SUGGESTIVE of COVID-19 infection keep in airborne isolation (5) Loss of smell: this is pathognomonic for COVID-19 infection despite the negative testing (6) Elevated AST (SGOT): likely 2nd to suspected COVID-19 infection trend in light of remdesivir usage (7) Acanthosis nigricans: worrisome for T2DM check a1c am (8) DVT prophylaxis: in light of suspected COVID-19 infection utilize lovenox 40mg BID as he is at high risk of VTE Admission and Anticipated Discharge Date Admission Date: December 05, 2020 Subjective tele overnight wnl pt not proning - he states "I can't watch TV" (when proned) cough/dyspnea about the same eating fair smell still gone taste impaired no new issues Review of Systems Constitutional: + fatigue; no fever and no chills Respiratory: no hemoptysis Cardiovascular: no chest pain Gastrointestinal: no vomiting and no diarrhea/loose stools Physical Exam Constitutional: well developed, well nourished and + obese; no acute distress and no altered mental status ENMT: external ear and nose normal, oropharynx normal Respiratory: + cough Auscultation: + diminished lung sounds (Bases) and + rales; no wheezes Cardiovascular: Rate/Rhythm: regular rate and regular rhythm Heart Sounds: normal S1 and normal S2; no murmur Vessels: posterior tibial pulses present and dorsalis pedis pulses present; no JVD Extremities: normal capillary refill; no edema Gastrointestinal (Abdomen): normal bowel sounds, soft, nontender, no hepatosplenomegaly Skin: no rashes, warm and dry acanthosis nigricans - neck Psychiatric: A+Ox3, euthymic affect Results & Data Results & Data ([facility]) Vital Signs (Past 12 Hours) Vital Signs Temp Pulse Resp BP Pulse Ox 12/07/20 19:47 36.6 C 75 20 175/99 H 97 12/07/20 12:01 36.2 C L 86 19 136/81 94 Laboratory Results Laboratory Results - last 24 hr 12/07/20 12/07/20 06:42 06:42 D-Dimer 830 H* Sodium 141 Potassium 3.6 Chloride 110 H Carbon Dioxide 24 Anion Gap 7.0 BUN 15 Creatinine 0.69 Est Cr Clr Drug Dosing 151.3 Est GFR ( Amer) 132.9 Est GFR (Non-Af Amer) 114.7 BUN/Creatinine Ratio 22.0 H Glucose 101 H Calcium 8.6 AST 32 ALT 46 PG Care Time/CCT Total # of Minutes Spent Total Time Spent with Patient: Total time spent is greater than 50% in coordination of care (as documented) at patient's floor/unit and/or counseling p atient: Coding Level of Care Code 00635 Subseq Hosp Care Lvl 2 Diagnoses Acute respiratory failure with hypoxia J96.01 Bilateral pneumonia J18.9 Lung location: unspecified part of lung Pneumonia type: due to unspecified organism Obesity (BMI 30-39.9) E66.9 Suspected 2019 novel coronavirus infection Z20.822 Loss of smell R43.0 Elevated AST (SGOT) R74.01 Acanthosis nigricans L83 DVT prophylaxis Z29.9 (1) Bilateral pneumonia Lung location: unspecified part of lung Pneumonia type: due to unspecified organism Qualified Code(s): J18.9 - Pneumonia, unspecified organism
[2020-12-08] MEDS: ENOXAPARIN INJ 40 MG/0.4 ML SYR SQ SCH ×3 (00:11→21:42)
[2020-12-08 07:55] LABS: BUN Creatinine Ratio 21.9 (10-20); Calcium 8.9 mg/dl (8.5-10.1); Creatinine Clr Calc Pharmacy 151.3 ml/min; Est GFR (African American) 132.9; Est GFR (Non-African American) 114.7; Potassium 3.7 mmol/L (3.5-5.1)
[2020-12-08] MEDS: dexAMETHasone 6 MG in SYRINGE 0 ML IV SCH (08:08)
[2020-12-08] MEDS: ADVANCED PROBIOTIC 1250 MG CAPSULE PO SCH (08:09)
[2020-12-08] MEDS: guaiFENesin 600 MG TABCR PO SCH ×2 (08:09→21:46)
[2020-12-08 08:20] LABS: Estimated Average Glucose 148 mg/dl; Hemoglobin A1C 6.8 % (4.5-5.6)
[2020-12-08] MEDS: levoFLOXacin/D5W 750 MG/150 ML BAG IV SCH (10:45)
[2020-12-08] MEDS: INSULIN ASPART 100 UNITS/ML 3 ML PEN SC SCH ×3 (11:57→22:10)
[2020-12-08] MEDS: REMDESIVIR 100 MG in SODIUM CHLORIDE 0.9% 230 ML IV SCH (12:22)
[2020-12-08] MEDS: SODIUM CHLORIDE 0.9% 10ML FLUSH IV SCH (13:44)
--- NOTE | 2020-12-08 19:54 | Hospitalist Progress Note ---
Date of Service December 08, 2020 Assessment & Plan (1) Acute respiratory failure with hypoxia: 2nd to extensive b/l pneumonia. Clinical picture is highly suggestive of COVID-19 pneumonia - labs, x-ray findings, clinical course, loss of smell, altered taste, etc all support the diagnosis. This is despite the negative COVID testing at presentation. He is from [facility] which is experiencing major outbreak of COVID-19. Could be atypical pneumonia (legionella, etc) but less likely. Scantly improved today with stable O2 requirements. Cont empiric Rx for COVID-19 infection -- * day #3 IV dexamethasone * day #3 IV remdesivir * s/p plasma treatment on 12/05/20 * airborne precautions * self-proning and aggressive pulmonary toilet again encouraged * bronchodilators * repeat COVID testing tomorrow * in the event this is bacterial pneumonia -- cont levaquin IV 750mg daily * await legionella urine Ag (2) Bilateral pneumonia: see above (3) Obesity (BMI 30-39.9): BMI 34 (4) Suspected 2019 novel coronavirus infection: suspect that his initial COVID testing was false negative repeat testing tomorrow loss of smell and altered taste HIGHLY SUGGESTIVE of COVID-19 infection keep in airborne isolation (5) Loss of smell: this is pathognomonic for COVID-19 infection despite the negative testing (6) Elevated AST (SGOT): likely 2nd to suspected COVID-19 infection trend in light of remdesivir usage (7) Type 2 diabetes mellitus: new diagnosis for him counseling given DM diet bsgs ac/hs novolog metformin at d/c DM education consult nutriton consult (8) DVT prophylaxis: in light of suspected COVID-19 infection utilize lovenox 40mg BID as he is at high risk of VTE Admission and Anticipated Discharge Date Admission Date: December 05, 2020 Subjective pt feeling better today. did prone for 3-4 hours overnight per staff. still with no smell, taste also impaired. coughing. HERNANDEZ remains no hemoptysis. no abd pain. tele wnl. Review of Systems Constitutional: + fatigue; no fever, no chills and no body aches Respiratory: + dyspnea on exertion Cardiovascular: no chest pain (some chest tightness centrally w/ coughing but no pleuritic pain ) and no dyspnea at rest Gastrointestinal: no abdominal pain, no nausea and no vomiting Physical Exam Constitutional: well developed, well nourished and + obese; no acute distress and no altered mental status ENMT: external ear and nose normal, oropharynx normal Respiratory: + cough Auscultation: + diminished lung sounds (Bases) and + rales; no wheezes Cardiovascular: Rate/Rhythm: regular rate and regular rhythm Heart Sounds: normal S1 and normal S2; no murmur Vessels: posterior tibial pulses present and dorsalis pedis pulses present; no JVD Extremities: normal capillary refill; no edema Gastrointestinal (Abdomen): normal bowel sounds, soft, nontender, no hepatosplenomegaly Skin: no rashes, warm and dry Psychiatric: A+Ox3, euthymic affect Results & Data Results & Data ([facility]) Vital Signs (Past 12 Hours) Vital Signs Temp Pulse Pulse Resp BP Pulse Ox 12/08/20 15:50 36.7 C 73 20 128/82 94 12/08/20 11:32 36.7 C 79 26 H 126/83 95 12/08/20 08:00 72 12/08/20 07:55 36.8 C 82 23 126/79 92 blood cx's neg bmp wnl PG Care Time/CCT Total # of Minutes Spent Total Time Spent with Patient: Total time spent is greater than 50% in coordination of care (as documented) at patient's floor/unit and/or counseling patient: Coding Level of Care Code 18314 Subseq Hosp Care Lvl 3 Diagnoses Acute respiratory failure with hypoxia J96.01 Bilateral pneumonia J18.9 Lung location: unspecified part of lung Pneumonia type: due to unspecified organism Obesity (BMI 30-39.9) E66.9 Suspected 2019 novel coronavirus infection Z20.822 Loss of smell R43.0 Elevated AST (SGOT) R74.01 Type 2 diabetes mellitus E11.9 DVT prophylaxis Z29.9 (1) Bilateral pneumonia Lung location: unspecified part of lung Pneumonia type: due to unspecified organism Qualified Code(s): J18.9 - Pneumonia, unspecified organism
[2020-12-08] MEDS: ZINC SULFATE 220 MG CAPSULE PO SCH (21:46)
[2020-12-08] MEDS: CHOLECALCIFEROL 1,000 UNITS 25 MCG TAB PO SCH (21:46)
[2020-12-09] MEDS: CHOLECALCIFEROL 1,000 UNITS 25 MCG TAB PO SCH (08:40)
[2020-12-09] MEDS: guaiFENesin 600 MG TABCR PO SCH ×2 (08:40→21:10)
[2020-12-09] MEDS: ADVANCED PROBIOTIC 1250 MG CAPSULE PO SCH (08:40)
[2020-12-09] MEDS: ZINC SULFATE 220 MG CAPSULE PO SCH (08:41)
[2020-12-09] MEDS: INSULIN ASPART 100 UNITS/ML 3 ML PEN SC SCH ×4 (10:15→21:20)
[2020-12-09] MEDS: levoFLOXacin/D5W 750 MG/150 ML BAG IV SCH (11:21)
[2020-12-09] MEDS: dexAMETHasone 6 MG in SYRINGE 0 ML IV SCH (11:21)
[2020-12-09 12:54] LABS: Influenza A virus by PCR Negative (Neg); Influenza B virus by PCR Negative (Neg); RSV by PCR Negative (Neg); SARS CoV2 RNA(COVID-19) InHosp NEGATIVE (Negative)
[2020-12-09] MEDS: ENOXAPARIN INJ 40 MG/0.4 ML SYR SQ SCH ×2 (14:07→23:42)
[2020-12-09] MEDS: REMDESIVIR 100 MG in SODIUM CHLORIDE 0.9% 230 ML IV SCH (14:13)
[2020-12-09] MEDS: SODIUM CHLORIDE 0.9% 10ML FLUSH IV SCH (17:12)
--- NOTE | 2020-12-09 19:46 | Hospitalist Progress Note ---
Date of Service December 09, 2020 Assessment & Plan (1) Acute respiratory failure with hypoxia: 2nd to extensive b/l pneumonia. Overall no clinical change overnight. Clinical picture is highly suggestive of COVID-19 pneumonia - labs, x-ray findings, clinical course, loss of smell, altered taste, etc all support the diagnosis. This is despite the negative COVID testing at presentation as well as negative repeat COVID test today. Flu and RSV x 2 negative. legionella urine ag negative. He is from [facility] which is experiencing major outbreak of COVID-19. Cont empiric Rx for COVID-19 infection -- * day #5 IV dexamethasone * day #5 IV remdesivir * s/p plasma treatment on 12/05/20 * airborne precautions * self-proning and aggressive pulmonary toilet again encouraged * bronchodilators * cont levaquin IV 750mg daily - day #4 (2) Bilateral pneumonia: see above (3) Suspected 2019 novel coronavirus infection: suspect that his initial COVID testing was false negative repeat testing still negative but loss of smell and altered taste HIGHLY SUGGESTIVE of COVID-19 infection keep in airborne isolation (4) Loss of smell: this is pathognomonic for COVID-19 infection despite the negative testing (5) Elevated AST (SGOT): likely 2nd to suspected COVID-19 infection trend in light of remdesivir usage (6) Type 2 diabetes mellitus: new diagnosis for him counseling given DM diet bsgs ac/hs novolog metformin at d/c BSGs controlled DM education consult and nutrition consult appreciated (7) Obesity (BMI 30-39.9): BMI 34 (8) DVT prophylaxis: in light of suspected COVID-19 infection utilize lovenox 40mg BID as he is at high risk of VTE Admission and Anticipated Discharge Date Admission Date: December 05, 2020 Subjective patient with ongoing cough, mainly dry, and HERNANDEZ. no dyspnea at rest. smell is still impaired. taste also impaired. appetite improving however. no cp or abd pain. no diarrhea. trying to prone. tele normal overnight. Review of Systems Constitutional: + fatigue; no fever and no chills Respiratory: no hemoptysis Cardiovascular: no chest pain, no orthopnea and no edema Gastrointestinal: no abdominal pain Physical Exam Constitutional: well developed, well nourished and + obese; no acute distress and no altered mental status coughing ENMT: external ear and nose normal, oropharynx normal Respiratory: + cough Auscultation: + diminished lung sounds (Bases) and + rales (bibasilar - worse today ); no wheezes Cardiovascular: Rate/Rhythm: regular rate and regular rhythm Heart Sounds: normal S1 and normal S2; no murmur Vessels: posterior tibial pulses present and dorsalis pedis pulses present; no JVD Extremities: normal capillary refill; no edema Gastrointestinal (Abdomen): normal bowel sounds, soft, nontender, no hepatosplenomegaly Skin: no rashes, warm and dry Psychiatric: A+Ox3, euthymic affect Results & Data Results & Data ([facility]) Vital Signs (Past 12 Hours) Vital Signs Temp Pulse Pulse Resp BP Pulse Ox 12/09/20 15:44 69 12/09/20 12:14 92 H 22 117/76 92 12/09/20 09:54 71 12/09/20 08:00 36.8 C 85 22 117/76 92 Laboratory Results Laboratory Results - last 24 hr 12/08/20 12/09/20 12/09/20 20:27 08:33 11:30 POC Glucose 145 H 151 H 120 H COVID-19 Eval Order SARS-CoV-2 (PCR) Influenza Type A (PCR) Influenza Type B (PCR) RSV (RT-PCR) 12/09/20 12/09/20 12/09/20 12:07 12:07 16:35 POC Glucose 179 H COVID-19 Eval Order CovFluRsv at [facility] SARS-CoV-2 (PCR) NEGATIVE Influenza Type A (PCR) Negative Influenza Type B (PCR) Negative RSV (RT-PCR) Negative PG Care Time/CCT Total # of Minutes Spent Total Time Spent with Patient: Total time spent is greater than 50% in coordination of care (as documented) at patient's floor/unit and/or counseling patient: Coding Level of Care Code 84271 Subseq Hosp Care Lvl 2 Diagnoses Acute respiratory failure with hypoxia J96.01 Bilateral pneumonia J18.9 Lung location: unspecified part of lung Pneumonia type: due to unspecified organism Suspected 2019 novel coronavirus infection Z20.822 Loss of smell R43.0 Elevated AST (SGOT) R74.01 Type 2 diabetes mellitus E11.9 Obesity (BMI 30-39.9) E66.9 DVT prophylaxis Z29.9 (1) Bilateral pneumonia Lung location: unspecified part of lung Pneumonia type: due to unspecified organism Qualified Code(s): J18.9 - Pneumonia, unspecified organism
[2020-12-10 07:07] LABS: Calcium 8.8 mg/dl (8.5-10.1); Creatinine Clr Calc Pharmacy 141.1 ml/min; Est GFR (African American) 129.1; Est GFR (Non-African American) 111.4
[2020-12-10] MEDS: guaiFENesin 600 MG TABCR PO SCH ×2 (07:49→20:40)
[2020-12-10] MEDS: ZINC SULFATE 220 MG CAPSULE PO SCH (07:50)
[2020-12-10] MEDS: ADVANCED PROBIOTIC 1250 MG CAPSULE PO SCH (07:50)
[2020-12-10] MEDS: CHOLECALCIFEROL 1,000 UNITS 25 MCG TAB PO SCH (07:50)
[2020-12-10] MEDS: dexAMETHasone 6 MG in SYRINGE 0 ML IV SCH (07:50)
[2020-12-10] MEDS: INSULIN ASPART 100 UNITS/ML 3 ML PEN SC SCH ×4 (07:55→20:43)
[2020-12-10] MEDS: levoFLOXacin/D5W 750 MG/150 ML BAG IV SCH (10:56)
[2020-12-10] MEDS: ENOXAPARIN INJ 40 MG/0.4 ML SYR SQ SCH ×2 (10:56→23:22)
--- NOTE | 2020-12-10 22:54 | Hospitalist Progress Note ---
Date of Service December 10, 2020 Assessment & Plan (1) Acute respiratory failure with hypoxia: 2nd to extensive b/l pneumonia - thought to be due to COVID-19 despite neg testing x 2. Overall no clinical change overnight - remains hypoxic on same amount of NC O2 as yesterday. Clinical picture is highly suggestive of COVID-19 pneumonia - labs, x-ray findings, clinical course, loss of smell, altered taste, etc all support the diagnosis. This is despite the negative COVID testing at presentation as well as negative repeat COVID test yesterday. Flu and RSV x 2 negative. legionella urine ag negative. He is from [facility] which is experiencing major outbreak of COVID-19. Cont empiric Rx for COVID-19 infection -- * day #6 IV dexamethasone * s/p 5-day course IV remdesivir - finished on 12/09 * s/p plasma treatment on 12/05/20 * airborne precautions * self-proning and aggressive pulmonary toilet again encouraged * bronchodilators * cont levaquin IV 750mg daily - day #5; change to PO levaquin tomorrow (2) Bilateral pneumonia: see above suspected to be COVID-19 despite neg testing (3) Suspected 2019 novel coronavirus infection: suspect that his initial COVID testing was false negative repeat testing still negative but loss of smell and altered taste HIGHLY SUGGESTIVE of COVID-19 infection keep in airborne isolation (4) Loss of smell: this is pathognomonic for COVID-19 infection despite the negative testing (5) Transaminitis: likely 2nd to COVID-19 infection doubt remdesivir caused such repeat ast and alt in am (6) Type 2 diabetes mellitus: new diagnosis for him counseling given DM diet bsgs ac/hs novolog metformin at d/c BSGs controlled/adequate DM education consult and nutrition consult appreciated (7) Obesity (BMI 30-39.9): BMI 34 (8) DVT prophylaxis: in light of suspected COVID-19 infection utilize lovenox 40mg BID as he is at high risk of VTE can likely transfer to med/surg airborne room on Friday if tele overnight wnl Admission and Anticipated Discharge Date Admission Date: December 05, 2020 Subjective no changes overnight. tele wnl. he states "I feel better" (on overall scale) but he continues with loss of smell, impaired taste, cough, and dyspnea. eating well despite impaired smell/taste. he is proning very little. he again blames the lack of proning on the presence of the handcuffs that are being used by guards. Review of Systems Constitutional: no fever and no anorexia Respiratory: + cough and + dyspnea Cardiovascular: no chest pain, no orthopnea and no edema Physical Exam Constitutional: well developed, well nourished and + obese; no acute distress and no altered mental status ENMT: external ear and nose normal, oropharynx normal Respiratory: + cough Auscultation: + diminished lung sounds (Bases) and + rales (bibasilar - mild); no wheezes Cardiovascular: Rate/Rhythm: regular rate and regular rhythm Heart Sounds: normal S1 and normal S2; no murmur Vessels: posterior tibial pulses present and dorsalis pedis pulses present; no JVD Extremities: normal capillary refill; no edema Gastrointestinal (Abdomen): normal bowel sounds, soft, nontender, no hepatosplenomegaly Skin: no rashes, warm and dry Psychiatric: A+Ox3, euthymic affect Results & Data Results & Data ([facility]) Vital Signs (Past 12 Hours) Vital Signs Temp Pulse Pulse Resp BP Pulse Ox 12/10/20 20:41 36.8 C 65 18 131/74 95 12/10/20 16:37 36.6 C 70 22 131/76 96 12/10/20 16:00 78 12/10/20 10:57 37.0 C 79 16 147/78 H 93 Laboratory Results Laboratory Results - last 24 hr 12/10/20 12/10/20 12/10/20 05:58 07:42 11:47 Sodium 134 L Potassium 4.0 Chloride 103 Carbon Dioxide 25 Anion Gap 6.0 BUN 16 Creatinine 0.74 Est Cr Clr Drug Dosing 141.1 Est GFR ( Amer) 129.1 Est GFR (Non-Af Amer) 111.4 BUN/Creatinine Ratio 21.0 H Glucose 176 H POC Glucose 114 H 201 H Calcium 8.8 AST 38 H ALT 80 H 12/10/20 12/10/20 16:36 20:42 Sodium Potassium Chloride Carbon Dioxide Anion Gap BUN Creatinine Est Cr Clr Drug Dosing Est GFR ( Amer) Est GFR (Non-Af Amer) BUN/Creatinine Ratio Glucose POC Glucose 168 H 160 H Calcium AST ALT PG Care Time/CCT Total # of Minutes Spent Total Time Spent with Patient: Total time spent is greater than 50% in coordination of care (as documented) at patient's floor/unit and/or counseling patient: Coding Level of Care Code 53364 Subseq Hosp Care Lvl 2 Diagnoses Acute respiratory failure with hypoxia J96.01 Bilateral pneumonia J18.9 Lung location: unspecified part of lung Pneumonia type: due to unspecified organism Suspected 2019 novel coronavirus infection Z20.822 Loss of smell R43.0 Transaminitis R74.01 Type 2 diabetes mellitus E11.9 Obesity (BMI 30-39.9) E66.9 DVT prophylaxis Z29.9 (1) Bilateral pneumonia Lung location: unspecified part of lung Pneumonia type: due to unspecified organism Qualified Code(s): J18.9 - Pneumonia, unspecified organism
[2020-12-11 07:04] LABS: BUN Creatinine Ratio 20.6 (10-20); Calcium 8.6 mg/dl (8.5-10.1); Creatinine Clr Calc Pharmacy 139.2 ml/min; Est GFR (African American) 128.4; Est GFR (Non-African American) 110.8; Potassium 4.1 mmol/L (3.5-5.1)
[2020-12-11] MEDS: CHOLECALCIFEROL 1,000 UNITS 25 MCG TAB PO SCH (08:25)
[2020-12-11] MEDS: ZINC SULFATE 220 MG CAPSULE PO SCH (08:25)
[2020-12-11] MEDS: ADVANCED PROBIOTIC 1250 MG CAPSULE PO SCH (08:25)
[2020-12-11] MEDS: guaiFENesin 600 MG TABCR PO SCH ×2 (08:26→21:29)
[2020-12-11] MEDS: INSULIN ASPART 100 UNITS/ML 3 ML PEN SC SCH ×4 (08:35→21:33)
[2020-12-11] MEDS: dexAMETHasone 6 MG in SYRINGE 0 ML IV SCH (10:53)
[2020-12-11] MEDS: levoFLOXacin 750 MG TAB PO SCH (10:54)
--- NOTE | 2020-12-11 10:55 | Hospitalist Progress Note ---
Date of Service December 11, 2020 Assessment & Plan (1) Acute respiratory failure with hypoxia: 2nd to extensive b/l pneumonia - thought to be due to COVID-19 despite neg testing x 2. Overall no clinical change overnight - remains hypoxic on same amount of NC O2 as yesterday. Clinical picture is highly suggestive of COVID-19 pneumonia - labs, x-ray findings, clinical course, loss of smell, altered taste, etc all support the diagnosis. This is despite the negative COVID testing at presentation as well as negative repeat COVID test yesterday. Flu and RSV x 2 negative. legionella urine ag negative. He is from [facility] which is experiencing major outbreak of COVID-19. Cont empiric Rx for COVID-19 infection -- * day #7 IV dexamethasone, 3 more days * s/p 5-day course IV remdesivir - finished on 12/09 * s/p plasma treatment on 12/05/20 * airborne precautions * self-proning and aggressive pulmonary toilet again encouraged, saturations stable on low flow * bronchodilators * cont levaquin 750mg daily - day #6; changed to PO today, finish tomorrow (2) Bilateral pneumonia: see above suspected to be COVID-19 despite neg testing (3) Suspected 2019 novel coronavirus infection: suspect that his initial COVID testing was false negative repeat testing still negative but loss of smell and altered taste HIGHLY SUGGESTIVE of COVID-19 infection keep in airborne isolation (4) Loss of smell: this is pathognomonic for COVID-19 infection despite the negative testing (5) Transaminitis: likely 2nd to COVID-19 infection doubt remdesivir caused such AST and ALT normal today (6) Type 2 diabetes mellitus: new diagnosis for him counseling given DM diet bsgs ac/hs novolog metformin at d/c monitor for hypoglycemia, no episodes (7) Obesity (BMI 30-39.9): BMI 34 (8) DVT prophylaxis: in light of suspected COVID-19 infection utilize lovenox 40mg BID as he is at high risk of VTE downgrade to medical status today, plan for discharge in 1-2 days Admission and Anticipated Discharge Date Admission Date: December 05, 2020 Subjective patient feels well, only on a few liters low flow NC, no distress eating and drinking well moving his bowels, making urine no fever/chills, no cough, no dyspnea at rest, no chest pain no issues on telemetry, move to medical floor likely for d/c in 1-2 days Review of Systems Review of Systems: All systems reviewed & are unremarkable except as noted in Subjective Physical Exam Constitutional: WD/WN, vitals as above Neck: trachea midline, no thyromegaly Respiratory: normal respiratory effort, lungs clear to auscultation Cardiovascular: RRR, no murmur, no edema Gastrointestinal (Abdomen): normal bowel sounds, soft, nontender, no hepatosplenomegaly Musculoskeletal: no cyanosis or clubbing, extremities motor strength 5/5 Skin: no rashes, warm and dry Neurologic: patellar DTR's 2+ bilat, sensation intact and PERRL, EOMI, accommodation nl, no face palsy, no dysarthria Psychiatric: A+Ox3, euthymic affect Lymphatic: no cervical or axillary lymphadenopathy Results & Data Results & Data ([facility]) Vital Signs (Past 12 Hours) Vital Signs Temp Pulse Pulse Resp BP BP Pulse Ox 12/11/20 07:30 36.7 C 61 20 124/76 95 12/11/20 03:30 36.6 C 72 16 128/72 97 12/10/20 23:45 72 12/10/20 23:25 36.8 C 59 L 20 144/87 H 96 Laboratory Results Laboratory Results - last 24 hr 12/10/20 12/10/20 12/10/20 11:47 16:36 20:42 Sodium Potassium Chloride Carbon Dioxide Anion Gap BUN Creatinine Est Cr Clr Drug Dosing Est GFR ( Amer) Est GFR (Non-Af Amer) BUN/Creatinine Ratio Glucose POC Glucose 201 H 168 H 160 H Calcium AST ALT 12/11/20 12/11/20 06:02 07:29 Sodium 138 Potassium 4.1 Chloride 105 Carbon Dioxide 26 Anion Gap 7.0 BUN 16 Creatinine 0.75 Est Cr Clr Drug Dosing 139.2 Est GFR ( Amer) 128.4 Est GFR (Non-Af Amer) 110.8 BUN/Creatinine Ratio 20.6 H Glucose 100 H POC Glucose 102 H Calcium 8.6 AST 27 ALT 72 Medications Administered Current Inpatient Medications Acetaminophen (Acetaminophen 325 Mg Tab) 650 mg PO Q6H PRN PRN Reason: Pain or Fever Stop: 01/04/21 12:22 Al Hydrox/Mg Hydrox/Simethicone (Aluminum/Magnesium/Simeth (Maalox Max) 30 Ml Udc) 30 ml PO Q6H PRN PRN Reason: Heartburn Stop: 01/04/21 12:22 Albuterol (Albuterol Hfa 8 Gm Inhaler) 2 puffs INH Q6 PRN PRN Reason: Shortness Of Breath Or Wheezing Stop: 01/04/21 12:44 Albuterol (Albuterol 0.083% Nebu Soln 3 Ml Vial) 2.5 mg NEB Q6R PRN PRN Reason: Shortness Of Breath Or Wheezing Stop: 01/04/21 12:59 Enoxaparin Sodium (Enoxaparin Inj 40 Mg/0.4 Ml Syr) 40 mg SQ Q12H [facility] Stop: 01/04/21 12:59 Last Admin: 12/10/20 23:22 Dose: 40 mg Documented by: Guaifenesin (Guaifenesin 600 Mg Tabcr) 1,200 mg PO Q12 [facility] Stop: 01/04/21 20:59 Last Admin: 12/11/20 08:26 Dose: 1,200 mg Documented by: Guaifenesin/Dextromethorphan (Guaifenesin/Dextrom Syrup 100mg/10mg 5ml Udc) 5 ml PO Q6H PRN PRN Reason: Cough Stop: 01/04/21 12:45 Dexamethasone 6 mg/ Syringe 1.5 mls @ 1 mls/min IV DAILY [facility] Stop: 12/14/20 09:02 Last Admin: 12/11/20 10:53 Dose: 1 mls/min Documented by: Insulin Aspart (Insulin Aspart 100 Units/Ml 3 Ml Pen) 0 units SC ACHS [facility] Stop: 01/07/21 11:29 Last Admin: 12/11/20 08:35 Dose: 8 units Documented by: Lactobacillus Acidoph/Casei/Rhamnos (Advanced Probiotic 1250 Mg Capsule) 2 cap PO DAILY [facility] Stop: 01/06/21 08:59 Last Admin: 12/11/20 08:25 Dose: 2 cap Documented by: Levofloxacin (Levofloxacin 750 Mg Tab) 750 mg PO DAILY@1100 [facility] Stop: 12/12/20 11:01 Last Admin: 12/11/20 10:54 Dose: 750 mg Documented by: Magnesium Hydroxide (Magnesium Hydroxide Susp 30 Ml Udc) 30 ml PO Q6H PRN PRN Reason: Constipation Stop: 01/04/21 12:22 Ondansetron HCl (Ondansetron Inj 2 Mg/Ml 2 Ml Vial) 4 mg IV Q8 PRN PRN Reason: Nausea Stop: 01/04/21 12:22 Vitamin D (Cholecalciferol 1,000 Units 25 Mcg Tab) 2,000 units PO QAM [facility] Stop: 01/07/21 17:29 Last Admin: 12/11/20 08:25 Dose: 2,000 units Documented by: Zinc Sulfate (Zinc Sulfate 220 Mg Capsule) 220 mg PO QAM [facility] Stop: 01/07/21 17:29 Last Admin: 12/11/20 08:25 Dose: 220 mg Documented by: PG Care Time/CCT Total # of Minutes Spent Total Time Spent with Patient: Total time spent is greater than 50% in coordination of care (as documented) at patient's floor/unit and/or counseling patient: Coding Level of Care Code 02159 Subseq Hosp Care Lvl 2 Diagnoses Acute respiratory failure with hypoxia J96.01 Bilateral pneumonia J18.9 Lung location: unspecified part of lung Pneumonia type: due to unspecified organism Suspected 2019 novel coronavirus infection Z20.822 Loss of smell R43.0 Transaminitis R74.01 Type 2 diabetes mellitus E11.9 Obesity (BMI 30-39.9) E66.9 DVT prophylaxis Z29.9 (1) Bilateral pneumonia Lung location: unspecified part of lung Pneumonia type: due to unspecified organism Qualified Code(s): J18.9 - Pneumonia, unspecified organism
[2020-12-11] MEDS: ENOXAPARIN INJ 40 MG/0.4 ML SYR SQ SCH ×2 (10:59→23:43)
[2020-12-12] MEDS: INSULIN ASPART 100 UNITS/ML 3 ML PEN SC SCH ×4 (08:50→20:58)
[2020-12-12] MEDS: ADVANCED PROBIOTIC 1250 MG CAPSULE PO SCH (08:52)
[2020-12-12] MEDS: CHOLECALCIFEROL 1,000 UNITS 25 MCG TAB PO SCH (08:52)
[2020-12-12] MEDS: ZINC SULFATE 220 MG CAPSULE PO SCH (08:52)
[2020-12-12] MEDS: dexAMETHasone 6 MG in SYRINGE 0 ML IV SCH (08:53)
[2020-12-12] MEDS: guaiFENesin 600 MG TABCR PO SCH ×2 (08:53→21:03)
[2020-12-12] MEDS: levoFLOXacin 750 MG TAB PO SCH (12:35)
[2020-12-12] MEDS: ENOXAPARIN INJ 40 MG/0.4 ML SYR SQ SCH (12:35)
--- NOTE | 2020-12-12 22:37 | Hospitalist Progress Note ---
Date of Service December 12, 2020 Assessment & Plan (1) Acute respiratory failure with hypoxia: 2nd to extensive b/l pneumonia - thought to be due to COVID-19 despite neg testing x 2. Overall no clinical change overnight - remains hypoxic on same amount of NC O2 as yesterday. Clinical picture is highly suggestive of COVID-19 pneumonia - labs, x-ray findings, clinical course, loss of smell, altered taste, etc all support the diagnosis. This is despite the negative COVID testing at presentation as well as negative repeat COVID test yesterday. Flu and RSV x 2 negative. legionella urine ag negative. He is from [facility] which is experiencing major outbreak of COVID-19. Cont empiric Rx for COVID-19 infection -- * day #8 IV dexamethasone, 2 more days * s/p 5-day course IV remdesivir - finished on 12/09 * s/p plasma treatment on 12/05/20 * airborne precautions * bronchodilators * completed 7 days of levaquin 750mg daily plan to discharge tomorrow, he is stable on 1L NC (2) Bilateral pneumonia: see above suspected to be COVID-19 despite neg testing (3) Suspected 2019 novel coronavirus infection: suspect that his initial COVID testing was false negative repeat testing still negative but loss of smell and altered taste HIGHLY SUGGESTIVE of COVID-19 infection keep in airborne isolation while here would be okay to be off isolation when he returns to [facility] (4) Loss of smell: this is pathognomonic for COVID-19 infection despite the negative testing (5) Transaminitis: likely 2nd to COVID-19 infection doubt remdesivir caused such AST and ALT normal 12/11 (6) Type 2 diabetes mellitus: new diagnosis for him counseling given DM diet bsgs ac/hs novolog metformin at d/c monitor for hypoglycemia, no episodes (7) Obesity (BMI 30-39.9): BMI 34 (8) DVT prophylaxis: in light of suspected COVID-19 infection utilize lovenox 40mg BID as he is at high risk of VTE downgrade to medical status, plan for discharge tomorrow Admission and Anticipated Discharge Date Admission Date: December 05, 2020 Subjective patient doing well, down to 1L NC, no distress eating and drinking well, moving bowels, making urine no chest pain, no cough discussed discharge tomorrow, he agrees with plan Review of Systems Review of Systems: All systems reviewed & are unremarkable except as noted in Subjective Physical Exam Constitutional: WD/WN, vitals as above Neck: trachea midline, no thyromegaly Respiratory: normal respiratory effort, lungs clear to auscultation Cardiovascular: RRR, no murmur, no edema Gastrointestinal (Abdomen): normal bowel sounds, soft, nontender, no hepatosplenomegaly Musculoskeletal: no cyanosis or clubbing, extremities motor strength 5/5 Skin: no rashes, warm and dry Neurologic: patellar DTR's 2+ bilat, sensation intact and PERRL, EOMI, accommodation nl, no face palsy, no dysarthria Psychiatric: A+Ox3, euthymic affect Lymphatic: no cervical or axillary lymphadenopathy Results & Data Results & Data ([facility]) Vital Signs (Past 12 Hours) Vital Signs Pulse Resp BP Pulse Ox 12/12/20 15:32 74 20 116/68 94 12/12/20 12:45 94 Laboratory Results Laboratory Results - last 24 hr 12/12/20 12/12/20 12/12/20 08:49 12:31 17:43 POC Glucose 88 157 H 118 H 12/12/20 20:56 POC Glucose 232 H Medications Administered Current Inpatient Medications Acetaminophen (Acetaminophen 325 Mg Tab) 650 mg PO Q6H PRN PRN Reason: Pain or Fever Stop: 01/04/21 12:22 Al Hydrox/Mg Hydrox/Simethicone (Aluminum/Magnesium/Simeth (Maalox Max) 30 Ml Udc) 30 ml PO Q6H PRN PRN Reason: Heartburn Stop: 01/04/21 12:22 Albuterol (Albuterol Hfa 8 Gm Inhaler) 2 puffs INH Q6 PRN PRN Reason: Shortness Of Breath Or Wheezing Stop: 01/04/21 12:44 Albuterol (Albuterol 0.083% Nebu Soln 3 Ml Vial) 2.5 mg NEB Q6R PRN PRN Reason: Shortness Of Breath Or Wheezing Stop: 01/04/21 12:59 Enoxaparin Sodium (Enoxaparin Inj 40 Mg/0.4 Ml Syr) 40 mg SQ Q12H KASIA Stop: 01/04/21 12:59 Last Admin: 12/12/20 12:35 Dose: 40 mg Documented by: Guaifenesin (Guaifenesin 600 Mg Tabcr) 1,200 mg PO Q12 KASIA Stop: 01/04/21 20:59 Last Admin: 12/12/20 21:03 Dose: 1,200 mg Documented by: Guaifenesin/Dextromethorphan (Guaifenesin/Dextrom Syrup 100mg/10mg 5ml Udc) 5 ml PO Q6H PRN PRN Reason: Cough Stop: 01/04/21 12:45 Dexamethasone 6 mg/ Syringe 1.5 mls @ 1 mls/min IV DAILY KASIA Stop: 12/14/20 09:02 Last Admin: 12/12/20 08:53 Dose: 1 mls/min Documented by: Insulin Aspart (Insulin Aspart 100 Units/Ml 3 Ml Pen) 0 units SC ACHS [facility] Stop: 01/07/21 11:29 Last Admin: 12/12/20 20:58 Dose: 9 units Documented by: Lactobacillus Acidoph/Casei/Rhamnos (Advanced Probiotic 1250 Mg Capsule) 2 cap PO DAILY [facility] Stop: 01/06/21 08:59 Last Admin: 12/12/20 08:52 Dose: 2 cap Documented by: Magnesium Hydroxide (Magnesium Hydroxide Susp 30 Ml Udc) 30 ml PO Q6H PRN PRN Reason: Constipation Stop: 01/04/21 12:22 Ondansetron HCl (Ondansetron Inj 2 Mg/Ml 2 Ml Vial) 4 mg IV Q8 PRN PRN Reason: Nausea Stop: 01/04/21 12:22 Vitamin D (Cholecalciferol 1,000 Units 25 Mcg Tab) 2,000 units PO QAM [facility] Stop: 01/07/21 17:29 Last Admin: 12/12/20 08:52 Dose: 2,000 units Documented by: Zinc Sulfate (Zinc Sulfate 220 Mg Capsule) 220 mg PO QAM [facility] Stop: 01/07/21 17:29 Last Admin: 12/12/20 08:52 Dose: 220 mg Documented by: PG Care Time/CCT Total # of Minutes Spent Total Time Spent with Patient: Total time spent is greater than 50% in coordination of care (as documented) at patient's floor/unit and/or counseling patient: Coding Level of Care Code 16204 Subseq Hosp Care Lvl 2 Diagnoses Acute respiratory failure with hypoxia J96.01 Bilateral pneumonia J18.9 Lung location: unspecified part of lung Pneumonia type: due to unspecified organism Suspected 2019 novel coronavirus infection Z20.822 Loss of smell R43.0 Transaminitis R74.01 Type 2 diabetes mellitus E11.9 Obesity (BMI 30-39.9) E66.9 DVT prophylaxis Z29.9 (1) Bilateral pneumonia Lung location: unspecified part of lung Pneumonia type: due to unspecified organism Qualified Code(s): J18.9 - Pneumonia, unspecified organism
[2020-12-13] MEDS: ENOXAPARIN INJ 40 MG/0.4 ML SYR SQ SCH ×2 (00:01→12:40)
[2020-12-13] MEDS: INSULIN ASPART 100 UNITS/ML 3 ML PEN SC SCH ×3 (00:39→12:34)
[2020-12-13] MEDS: guaiFENesin 600 MG TABCR PO SCH (08:42)
[2020-12-13] MEDS: ZINC SULFATE 220 MG CAPSULE PO SCH (08:42)
[2020-12-13] MEDS: ADVANCED PROBIOTIC 1250 MG CAPSULE PO SCH (08:42)
[2020-12-13] MEDS: CHOLECALCIFEROL 1,000 UNITS 25 MCG TAB PO SCH (08:42)
[2020-12-13] MEDS: dexAMETHasone 6 MG in SYRINGE 0 ML IV SCH (08:43)
--- NOTE | 2020-12-13 12:22 | Discharge Summary ---
Date of Service December 13, 2020 Admission HPI Per Admitting Provider Mr. Martins is a 45 year male inmate at [facility] with a history of Tobacco Use and Migraine Headaches who presented acutely to [facility] ER today with complaints of SOB, Non-Productive Cough, and Hypoxia. The patient started having shortness of breath last evening after taking a shower. He has also experienced diarrhea over the past 24 hours but denies any nausea, vomiting, or focal abdominal pain. Patient also reports chills, but he didn't check his temperature. He has a cough which is non-productive although it feels like "something wants to come up". Cough is exacerbated by taking a deep breath, and it hurts his head and chest when he coughs. His oxygen saturations at [facility] were recorded in the 80s -- so he was referred to the ER. Evaluation so far shows negative SARS CoV-2, negative for influenza. CXR shows multifocal infiltrates. CTA of Chest is negative for PE, moderate multifocal pneumonia most consistent with a viral process, and mild mediastinal and bilateral hilar lymphadenopathy (likely reactive). Presentation is consistent with COVID. Principal Diagnosis Multifocal pneumonia with acute hypoxic respiratory failure Discharge Exam Constitutional WD/WN, vitals as above Neck trachea midline, no thyromegaly Respiratory normal respiratory effort, lungs clear to auscultation Cardiovascular RRR, no murmur, no edema Gastrointestinal (Abdomen) normal bowel sounds, soft, nontender, no hepatosplenomegaly Musculoskeletal no cyanosis or clubbing, extremities motor strength 5/5 Skin no rashes, warm and dry Neurologic patellar DTR's 2+ bilat, sensation intact and PERRL, EOMI, accommodation nl, no face palsy, no dysarthria Psychiatric A+Ox3, euthymic affect Lymphatic no cervical or axillary lymphadenopathy Discharge Data Allergies Allergy/AdvReac Type Severity Reaction Status Date / Time No Known Allergies Allergy Unverified 12/05/20 08:19 Consultations 12/05/20 09:38 ED Decision to Admit Stat Ordered Studies 12/05/20 09:52 CT angio chest PE protocol Stat Diabetes Follow up Diabetes Follow-up Needed for Newly Diagnosed Diabetes Hospital Course (1) Acute respiratory failure with hypoxia: 2nd to extensive b/l pneumonia - thought to be due to COVID-19 despite neg testing x 2. Clinical picture is highly suggestive of COVID-19 pneumonia - labs, x-ray findings, clinical course, loss of smell, altered taste, etc all support the diagnosis. This is despite the negative COVID testing at presentation as well as negative repeat COVID test yesterday. Flu and RSV x 2 negative. legionella urine ag negative. He is from [facility] which is experiencing major outbreak of COVID-19. treated empirically for COVID-19 infection -- * completed 9 days of dexamethasone 6mg IV daily no longer on oxygen, can stop the dexamethasone * s/p 5-day course IV remdesivir - finished on 12/09 * s/p plasma treatment on 12/05/20 * airborne precautions * bronchodilators * completed 7 days of levaquin 750mg daily discharge back to [facility], on room air breathing well, eating well, no fever, appears to be fully recovered (2) Bilateral pneumonia: see above suspected to be COVID-19 despite neg testing treated for COVID as well as possible bacterial pneumonia with Levaquin, 7 days (3) Suspected 2019 novel coronavirus infection: suspect that his initial COVID testing was false negative repeat testing still negative but loss of smell and altered taste HIGHLY SUGGESTIVE of COVID-19 infection keep in airborne isolation while here would be okay to be off isolation when he returns to [facility] (4) Loss of smell: this is pathognomonic for COVID-19 infection despite the negative testing (5) Transaminitis: likely 2nd to COVID-19 infection doubt remdesivir caused such AST and ALT normal 12/11 (6) Type 2 diabetes mellitus: new diagnosis for him counseling given DM diet bsgs ac/hs novolog d/w patient and provider at [facility] could start on Metformin 500mg BID or could try life style modifications, he is obese and weight loss might be enough to treat DM (7) Obesity (BMI 30-39.9): BMI 34 (8) DVT prophylaxis: in light of suspected COVID-19 infection utilize lovenox 40mg BID as he is at high risk of VTE Total Time Total Time Spent Total Time Spent (In Minutes): 33 minutes Total Time Includes: Examination of the Patient, Discharge Planning, Medication Reconciliation and Communication With Other Providers (Dr. Jackson at [facility]) Discharge Plan Discharge Items [facility]position[facility] Reason For Visit: PUI, PNX Discharge Diagnosis: Pneumonia, multifocal Acute hypoxic respiratory failure Condition on Discharge: Good Activity: Resume your previous activity Non-emergency contact: Primary Care Provider Call non-emergency contact if: you have any medication questions Follow-up/Referrals: Moni PARKS [Primary Care Provider] - Diet: Carb Consistent or DM2 Addtl Attending Provider Instructions: Medications: - METFORMIN: start on 500mg twice a day, can start in a few days, new diagnosis of DM type II, see below Multifocal pneumonia, suspected COVID due to image findings, symptoms, oxygen requirements and being in [facility] however, two separate COVID tests were negative he was kept in isolation while here to be safe treated with Dexamethasone, Remdesivir he responded well to treatment, stable on room air now eating and drinking well no need for isolation on return to [facility] DM type II, new diagnosis, HbA1c 6.8% defer to provider at [facility] about treatment with metformin could just try dietary changes and weight loss as first line since A1c is just a little above 6.5 use insulin while admitted to cover blood sugars while on dexamethasone Pending Studies at Discharge: No Stand-Alone Forms: My [facility] Skilled Items Patient informed of condition?: Yes Discharge Level of Care: Other Communicable Disease: No Discharge Prognosis: Stable Lines: None Urinary Catheter: No Medications and DC Order Prescriptions: New metformin 500 mg tablet 500 mg PO BID Qty: 60 RF: 0 No Action No Known Home Medications RF: 0 Discharge Orders: Discharge Order (Routine); Ordered 12/13/20 Ordered By: Lucas Pérez/Other Patient Handouts: Managing Type 2 Diabetes, Exercise to Manage Your Blood Sugar, 5 Steps for Eating Healthier, Managing Diabetes: The A1C Test, Understanding Type 2 Diabetes Admission Data Admit Date/Time: 12/05/20 12:17 Attending Provider: Lucas Malin Admit Provider: Aylin Yip Primary Care Provider: Moni PARKS Other Providers: Aylin Yip Other Interventions: Discharge Summary Assessment (RN) Last Done: 12/13/20 12:56 Coding Level of Care Code D/C Day Management >30 mins Diagnoses Acute respiratory failure with hypoxia J96.01 Bilateral pneumonia J18.9 Lung location: unspecified part of lung Pneumonia type: due to unspecified organism Suspected 2019 novel coronavirus infection Z20.822 Loss of smell R43.0 Transaminitis R74.01 Type 2 diabetes mellitus E11.9 Obesity (BMI 30-39.9) E66.9 DVT prophylaxis Z29.9
== END 2020-12-13 15:40 | DRG 177 ==
LOC: ED 07:42 → 2S 11:58 → SUATTDRO 12:17 → 2S 12:17 → 3W 12-11 17:20
DX: J96.01 Acute respiratory failure with hypoxia; J12.82 Pneumonia due to coronavirus disease 2019; E11.9 Type 2 diabetes mellitus without complications; U07.1 COVID-19; E66.9 Obesity, unspecified; Z68.34 Body mass index [BMI] 34.0-34.9, adult; Z87.891 Personal history of nicotine dependence; R74.01 Elevation of levels of liver transaminase levels